=== PATIENT | male | born 1965 | race Hispanic/Latino ===

== ENCOUNTER 2020-12-30 09:24 | Emergency (ER) | payer SELFPAY ==
[2020-12-30] MEDS ORDERED: Aspirin Chewable 81 MG TAB ONE (10:13)
[2020-12-30] MEDS ORDERED: Nitroglycerin 2% Ointment 1 INCH/1 GM Packet ONE (10:13)
--- NOTE | 2020-12-30 10:18 | RAD ---
EXAM: Portable chest PROVIDED CLINICAL HISTORY: Chest pain COMPARISON: None FINDINGS: Cardiac and mediastinal silhouette is within normal limits. No focal consolidation, pleural fluid or pneumothorax evident. IMPRESSION: No evidence for an acute cardiopulmonary process.
[2020-12-30 10:21] LABS: Hemoglobin 12.4 g/dL (14.0-18.0); Mean Corpuscular HGB CONC 32.2 g/dL (32.0-36.0); Mean Corpuscular Hemoglobin 27.4 pg (27.0-31.0); Mean Corpuscular Volume 85.3 fL (78.0-98.0); RBC Distribution Width 14.9 % (11.5-14.5); Red Blood Cell (RBC) Count 4.51 mill/uL (4.70-6.10); White Blood Cell (WBC) Count 8.2 thou/uL (4.8-10.8)
[2020-12-30 10:38] LABS: Acetaminophen Less than 6.0 mcg/mL (10.0-30.0); Alcohol 277 mg/dL (Less than 10); Band 5 % (5-11); Large Platelets SLIGHT; Lymphocytes 64 % (21-51); MDiff Complete? YES; Monocytes 1 % (0-10); Neutrophil 29 % (42-75); Platelet Count 70 thou/uL (130-400); Platelet Morphology Comment Appears Decreased; Salicylate Less than 8.0 mg/dL (15.0-30.0)
[2020-12-30 10:41] LABS: ALT (SGPT) 37 U/L (8-55); AST (SGOT) 125 U/L (5-34); Albumin 2.8 g/dL (3.5-5.0); Alkaline Phosphatase 228 U/L (40-110); Anion Gap 17 mmol/L (10-20); BUN (Urea Nitrogen) 4 mg/dL (8.4-25.7); Bilirubin, Total 1.4 mg/dL (0.2-1.2); CK (CPK) 104 U/L (30-200); Calc. Creatinine Clearance 0 mL/min (70-130); Calcium 7.6 mg/dL (7.8-10.44); Carbon Dioxide 24 mmol/L (22-29); Chloride 107 mmol/L (98-107); Globulin 4.6 g/dL (2.4-3.5); Glucose 99 mg/dL (70-105); Potassium 3.5 mmol/L (3.5-5.1); Protein, Total 7.4 g/dL (6.0-8.3); Sodium 144 mmol/L (136-145)
[2020-12-30 10:51] LABS: Amphetamine Not Detected (NotDetected); Barbiturates Screen Not Detected (NotDetected); Benzodiazepine Screen Not Detected (NotDetected); Cocaine Metabolite Screen Not Detected (NotDetected); Medtox Control Line Valid? VALID (VALID); Medtox Reader # READER 4; Methadone Not Detected (NotDetected); Methamphetamine Not Detected (NotDetected); Opiate Screen Not Detected (NotDetected); Oxycodone Screen Not Detected (NotDetected); Phencyclidine (PCP) Not Detected (NotDetected); THC/Cannabinoid Screen Not Detected (NotDetected); Tricyclic Screen Not Detected (NotDetected)
--- NOTE | 2020-12-30 11:26 | ULT ---
EXAM: US Gallbladder RUQ PROVIDED CLINICAL HISTORY: Chest pain COMPARISON: None FINDINGS: The pancreas is obscured. The visualized IVC appears normal. The liver is poorly visualized, demonstr ating a coarsened and inhomogeneous appearance suggesting fatty infiltration, without definite evidence for focal mass. The gallbladder demonstrates no definite evidence for stones, wall thickenin g or pericholecystic fluid. The right kidney demonstrates no hydronephrosis or mass. IMPRESSION: No evidence for an acute process.
--- NOTE | 2020-12-30 11:52 | CT ---
EXAM: CT pulmonary angiogram with IV contrast and 3-D MIP reconstructions PROVIDED CLINICAL HISTORY: Dyspnea COMPARISON: None FINDINGS: There is no evidence for central or segmental pulmonary embolus. The lungs are free of significant opacity. No pleural fluid or pneumothorax apparent. No evidence for thoracic lymph node enlargement. The airway appears patent and of normal caliber. Hepatic cirrhosis and paraesophageal varices demonstrated. Small gallstones are seen. Trace perihepat ic ascites. The osseous structures demonstrate no concerning lytic or blastic lesions. IMPRESSION: No evidence for central or segmental pulmonary embolus.
[2020-12-30] MEDS ORDERED: Iopamidol-370 76% 500 ML 1 ML ONE (12:13)
[2020-12-30 12:20] LABS: SARS-CoV-2 NAA Rapid Test Not Detected (NotDetected)
[2020-12-30 13:53] LABS: Lactic Acid 2.2 mmol/L (0.5-2.2)
[2020-12-30 14:02] LABS: Troponin I 0.017 ng/mL (< 0.028)
[2020-12-30 14:03] LABS: Bilirubin Negative (Negative); Blood, Urine Negative (Negative); Clarity Clear (Clear); Glucose, Urine (Dipstick) Normal (Negative); Ketone, Urine Negative (Negative); Leukocyte Negative Leu/uL (Negative); Nitrite Negative (Negative); Protein, Urine (Dipstick) Negative (Neg-Trace); Urobilinogen Normal mg/dL (Less than 2)
--- NOTE | 2020-12-30 15:31 | ULT ---
EXAM: Bilateral lower extremity venous Doppler PROVIDED CLINICAL HISTORY: Chest pain, elevated d-dimer FINDINGS: Grayscale and color Doppler sonography with spectral analysis was performed of the common femoral, fe moral, popliteal, posterior tibial, greater saphenous and profunda femoral veins bilaterally. The evaluated venous structures demonstrate a normal sonographic appearance. IMPRESSION: No sonographic evidence for lower extremity deep venous thrombosis.
== END 2020-12-30 15:58 | disposition home or self-care (01) ==
LOC: ERS 09:24
DX: F10.129 Alcohol abuse with intoxication, unspecified (principal); R94.5 Abnormal results of liver function studies; R07.9 Chest pain, unspecified; R10.11 Right upper quadrant pain; R00.0 Tachycardia, unspecified; Y90.8 Blood alcohol level of 240 mg/100 ml or more; R61 Generalized hyperhidrosis; Z20.822 Contact with and (suspected) exposure to COVID-19
CPT/HCPCS: 0240U; 36415; 71045; 71275; 76705; 80053; 80306; 80307; 81003; 82550; 83605; 83690; 83880; 84484; 85025; 85379; 87040; 93005; 93970; Q9967